=== PATIENT | male | born 1940 | race Caucasian/White ===

== ENCOUNTER 2020-06-17 08:18 | Outpatient (CLI) | payer OTHER, SELFPAY ==
--- NOTE | 2020-06-17 08:27 | CT_ITS ---
WS: [id number] CT scan of the head, with and without IV contrast, 06/17/2020 Clinical Data: CONFUSION DEMENTIA Comparison: None. DLP: 2116.[address] scans at [facility] use at least one of these dose optimization techniques: automat ed exposure control; mA and/or kV adjustment per patient size (includes targeted exams where dose is matched to clinical indication); or iterative reconstruction. Findings: The ventricular system is modestly enlarged without shift. No recent infarct or hemorrhage is seen. T here are no abnormal intracerebral masses. The cerebellum and brainstem are not remarkable. No abnorm al contrast enhancement of any structure occurs. No metastatic lesions are seen. Bony windows of the skull and skull base show no fractures or erosions. The mastoid air cells, agriculture intern al auditory canals, sella turcica and intraorbital contents are unremarkable. There is mucoperiosteal thickening of the left frontal, both ethmoid, both maxillary and right sphenoid sinuses. No air-flui d levels are seen. CT/CT head wo/w con [id number] Impression: 1. Moderate cerebral atrophy. 2. Chronic pansinusitis.
[2020-06-17] MEDS: iohexol 300 mg/mL 100 mL Btl IV (09:03)
== END 2020-06-17 08:19 | disposition home or self-care (01) ==
LOC: RADWPI 08:19
PROVIDERS: PCP Family Medicine; Visit Provider Emergency Medicine Emergency Medical Services
DX: R41.0 Disorientation, unspecified (principal); F03.90 Unspecified dementia, unspecified severity, without behavioral disturbance, psychotic disturbance, mood disturbance, and anxiety; J32.4 Chronic pansinusitis; G31.9 Degenerative disease of nervous system, unspecified
CPT/HCPCS: 70470; Q9967

== ENCOUNTER → 2020-06-30 10:43 | Outpatient (BNVA) | payer OTHER, SELFPAY | PROVIDERS: PCP Family Medicine; Visit Provider Internal Medicine | DX: E11.65 Type 2 diabetes mellitus with hyperglycemia (principal); E21.3 Hyperparathyroidism, unspecified; F03.90 Unspecified dementia, unspecified severity, without behavioral disturbance, psychotic disturbance, mood disturbance, and anxiety; I95.9 Hypotension, unspecified; R00.1 Bradycardia, unspecified | CPT/HCPCS: 99205 ==

== ENCOUNTER 2020-06-30 12:44 | Outpatient (CLI) | payer OTHER, SELFPAY ==
[2020-06-30 13:46] LABS: Calcium 9.3 mg/dL (8.5-10.5); Parathyroid Hormone 67.2 pg/mL (15-65)
[2020-06-30 13:53] LABS: 25 Hydroxy Vitamin D 21 ng/mL (30-100); Glucose 286 mg/dL (65-115)
[2020-07-01 08:53] LABS: C-Peptide 1.99 ng/mL (0.80-3.85)
== END 2020-06-30 12:45 | disposition home or self-care (01) ==
LOC: LAB 12:46
PROVIDERS: PCP Family Medicine; Visit Provider Internal Medicine
DX: E11.65 Type 2 diabetes mellitus with hyperglycemia (principal); E21.3 Hyperparathyroidism, unspecified
CPT/HCPCS: 36415; 82306; 82310; 82947; 83970; 84681

== ENCOUNTER → 2020-07-03 11:11 | Outpatient (BNVA) | payer OTHER, SELFPAY | PROVIDERS: PCP Family Medicine; Visit Provider Internal Medicine | DX: E11.65 Type 2 diabetes mellitus with hyperglycemia (principal); I10 Essential (primary) hypertension; I73.9 Peripheral vascular disease, unspecified; Z95.1 Presence of aortocoronary bypass graft | CPT/HCPCS: 99213 ==

== ENCOUNTER → 2020-10-19 09:10 | Outpatient (BNVA) | payer OTHER, SELFPAY | PROVIDERS: PCP Emergency Medicine Emergency Medical Services; Referring Provider Emergency Medicine Emergency Medical Services; Visit Provider Specialist | DX: G30.9 Alzheimer's disease, unspecified (principal); F02.80 Dementia in other diseases classified elsewhere, unspecified severity, without behavioral disturbance, psychotic disturbance, mood disturbance, and anxiety | CPT/HCPCS: 99204 ==

== ENCOUNTER → 2021-01-18 13:14 | Outpatient (BNVA) | payer OTHER, SELFPAY | PROVIDERS: PCP Emergency Medicine Emergency Medical Services; Visit Provider Specialist | DX: G31.83 Neurocognitive disorder with Lewy bodies (principal); F02.80 Dementia in other diseases classified elsewhere, unspecified severity, without behavioral disturbance, psychotic disturbance, mood disturbance, and anxiety | CPT/HCPCS: 99214 ==

== ENCOUNTER → 2021-02-18 14:37 | Outpatient (BNVA) | payer OTHER, SELFPAY | PROVIDERS: PCP Emergency Medicine Emergency Medical Services; Visit Provider Internal Medicine | DX: E11.65 Type 2 diabetes mellitus with hyperglycemia (principal); F03.90 Unspecified dementia, unspecified severity, without behavioral disturbance, psychotic disturbance, mood disturbance, and anxiety; I73.9 Peripheral vascular disease, unspecified; Z95.1 Presence of aortocoronary bypass graft; Z79.4 Long term (current) use of insulin; Z79.84 Long term (current) use of oral hypoglycemic drugs | CPT/HCPCS: 99214 ==